=== PATIENT | female | born 1990 | race Caucasian/White ===

== ENCOUNTER 2024-09-22 19:15 | Inpatient (IN) | payer OTHER ==
[2024-09-22 20:25] VITALS: BMI 52.3
[2024-09-22] MEDS: DEXTROSE 5%-LACTATED RINGERS 1,000 ML IV SCH (20:30)
[2024-09-22 20:40] LABS: ABSOLUTE IMMATURE GRANULOCYTES 0.09 x10^3/uL (0.0-0.031); BASOPHILS # 0.03 x10^3/uL (0.01-0.08); EOSINOPHIL % 0.8 % (0.7-5.8); EOSINOPHILS # 0.08 x10^3/uL (0.04-0.36); HEMATOCRIT 36.3 % (34.1-44.9); HEMOGLOBIN 11.9 g/dL (11.2-15.7); MCHC 32.8 g/dl (32.2-35.5); MEAN CELL VOLUME 83.6 fl (79.4-94.8); MEAN PLT VOLUME 11.1 fl (9.4-12.3); MONOCYTE # 0.67 x10^3/uL (0.24-0.86); MONOCYTE % 6.4 % (4.7-12.5); PLATELET COUNT 206 x10^3/uL (182-369); RDW 14.4 % (12.1-16.8)
[2024-09-22 20:42] LABS: INR 0.95 (0.83-1.09); PROTHROMBIN TIME (PATIENT) 10.4 SEC (9.7-13.0)
[2024-09-22 20:45] LABS: ACTIVATED PTT 27.1 SECONDS (25.2-36.5)
[2024-09-22 21:25] LABS: POTASSIUM 3.8 mmol/L (3.5-5.1)
[2024-09-22 21:35] LABS: BLOOD UREA NITROGEN 6.5 mg/dL (7-18); CALCIUM 9.9 mg/dL (8.5-10.1)
[2024-09-22 21:36] LABS: ALBUMIN 2.8 g/dl (3.4-5.0)
[2024-09-22 21:39] LABS: CREATININE 0.5 mg/dL (0.55-1.3)
[2024-09-22 21:40] LABS: BILIRUBIN,TOTAL 0.5 mg/dL (0.2-1); TOT PROT 6.4 g/dl (6.4-8.2)
[2024-09-22] MEDS: MISOPROSTOL 25 MCG TABLET (COMPOUNDED BY PHARMACY) PV SCH (22:10)
[2024-09-23] MEDS: SODIUM CHLORIDE 1,000 ML IV STA (07:20)
[2024-09-23] MEDS ORDERED: FENTANYL/BUPIVACAINE/NS/PF - PCEA - 50 ML DISP.SYRIN EP ONE ×2 (07:24→11:43)
[2024-09-23] MEDS: FENTANYL/BUPIVACAINE/NS/PF - PCEA - 50 ML DISP.SYRIN EP SCH (08:25)
[2024-09-23] MEDS ORDERED: NALOXONE HCL 0.4 MG/ML VIAL IVPUSH PRN (08:41)
[2024-09-23] MEDS ORDERED: OXYTOCIN 30 UNITS in 0.9% NS 30 UNIT/500 ML INFUS.BAG IVPB ONE (09:22)
[2024-09-23] MEDS: OXYTOCIN 30 UNITS in 0.9% NS 30 UNIT/500 ML INFUS.BAG IVPB SCH (09:30)
[2024-09-23] MEDS ORDERED: LIDOCAINE HCL/PF 2% SDV 5ML VIAL ONE (12:09)
[2024-09-23] MEDS ORDERED: OXYTOCIN 20 UNITS in 0.9% NS 20 UNIT/1,000 ML INFUS.BAG IV ONE (13:48)
[2024-09-23] MEDS ORDERED: LIDOCAINE HCL 1% PRESERVATIVE FREE - 30ML VIAL ONE (13:50)
[2024-09-23] MEDS ORDERED: OXYTOCIN 10 UNITS/ML VIAL ONE (14:13)
[2024-09-23] MEDS: OXYTOCIN 20 UNITS in 0.9% NS 20 UNIT/1,000 ML INFUS.BAG IV SCH (14:16)
[2024-09-23] MEDS: OXYTOCIN 10 UNITS/ML VIAL IM ONE (14:20)
[2024-09-23] MEDS ORDERED: ACETAMINOPHEN 325 MG TABLET (FP) PO PRN (14:37)
[2024-09-23] MEDS ORDERED: WITCH HAZEL 50% (TUCKS) 40 PAD/JAR PAD TP PRN (14:37)
[2024-09-23] MEDS ORDERED: BENZOCAINE 28 GM HEMORRHOIDAL OINTMENT TP PRN (14:37)
[2024-09-23 14:45] LABS: CORD BASE EXCESS -2.2 mmol/L (0-2); CORD HCO3 22.8 mmHg (20-29); CORD PCO2 40.4 mmHg (30-78); CORD pH 7.37 (7.14-7.44)
[2024-09-23 14:48] LABS: CORD BASE EXCESS -6.4 mmol/L (0-2); CORD HCO3 21.3 mmHg (20-29); CORD PCO2 50.3 mmHg (30-78); CORD pH 7.245 (7.14-7.44)
[2024-09-23] MEDS: IBUPROFEN 600 MG TABLET (FP) PO PRN (17:20)
[2024-09-24 07:19] LABS: ABSOLUTE IMMATURE GRANULOCYTES 0.08 x10^3/uL (0.0-0.031); BASOPHILS # 0.02 x10^3/uL (0.01-0.08); EOSINOPHIL % 1.5 % (0.7-5.8); EOSINOPHILS # 0.14 x10^3/uL (0.04-0.36); HEMATOCRIT 29.8 % (34.1-44.9); HEMOGLOBIN 9.7 g/dL (11.2-15.7); MCHC 32.6 g/dl (32.2-35.5); MEAN CELL VOLUME 83.7 fl (79.4-94.8); MONOCYTE # 0.83 x10^3/uL (0.24-0.86); PLATELET COUNT 160 x10^3/uL (182-369); RDW 14.6 % (12.1-16.8)
[2024-09-24] MEDS: DOCUSATE SODIUM 100 MG CAPSULE (FP) PO SCH (20:10)
[2024-09-25 10:19] VITALS: BP 111/64; PULSE 71; RESP 17; TEMP 97.7
== END 2024-09-25 12:45 | disposition home or self-care (01) | DRG 560 ==
LOC: JLDR 19:15 → J3W 09-23 16:57
PROVIDERS: ADMIT Obstetrics & Gynecology Maternal & Fetal Medicine; ATTEND Obstetrics & Gynecology Maternal & Fetal Medicine
PROC: 10E0XZZ Delivery of Products of Conception, External Approach (ICD-10-PCS; principal; 2024-09-23)
PROC: 0HQ9XZZ Repair Perineum Skin, External Approach (ICD-10-PCS; 2024-09-23)
PROC: 0W8NXZZ Division of Female Perineum, External Approach (ICD-10-PCS; 2024-09-23)
DX: O99.12 Other diseases of the blood and blood-forming organs and certain disorders involving the immune mechanism complicating childbirth (principal); O99.214 Obesity complicating childbirth; O70.0 First degree perineal laceration during delivery; Z3A.38 38 weeks gestation of pregnancy; Z37.0 Single live birth
CPT/HCPCS: 36415; 36600; 59409; 80048; 80053; 82803; 85025; 85610; 85730; 86780; 86850; 86900; 86901; 88307-TC